=== PATIENT | female | born 1985 | race Caucasian/White ===

== ENCOUNTER 2017-01-19 18:59 | Emergency (ER) | payer MEDICAID, OTHER ==
[2017-01-19 20:42] VITALS: BP 125/81
== END 2017-01-20 03:07 | disposition left against medical advice (07) ==
LOC: ED 18:59
DX: M79.602 Pain in left arm (principal); Z53.21 Procedure and treatment not carried out due to patient leaving prior to being seen by health care provider

== ENCOUNTER 2021-10-14 21:57 | Outpatient (CLI) | payer OTHER ==
[2021-10-14 22:16] VITALS: BP 135/86
== END 2021-10-15 01:18 | disposition home or self-care (01) ==
LOC: TRG 21:57 → APU 22:04 → TRG 10-15 01:18
PROVIDERS: ATTEND Obstetrics & Gynecology
DX: O47.03 False labor before 37 completed weeks of gestation, third trimester (principal); Z3A.39 39 weeks gestation of pregnancy
CPT/HCPCS: 59025

== ENCOUNTER 2021-10-15 06:09 | Inpatient (IN) | payer OTHER ==
[2021-10-15] MEDS ORDERED: LACTATED RINGERS 1,000 ML ONE (06:27)
[2021-10-15] MEDS ORDERED: BUTORPHANOL 2 MG/1 ML INJ IV PRN (06:35)
[2021-10-15] MEDS ORDERED: NalbUPHINE 10 MG/1 ML INJ IV PRN (06:35)
[2021-10-15] MEDS ORDERED: miSOPROStol 200 MCG TAB PR PRN (06:35)
[2021-10-15] MEDS ORDERED: LOPERAMIDE 2 MG CAP PO PRN (06:35)
[2021-10-15] MEDS ORDERED: ePHEDrine SULFATE 50 MG/1 ML INJ IV PRN (06:35)
[2021-10-15] MEDS ORDERED: METHYLERGONOVINE MALEATE 0.2 MG/ML VIAL IM PRN (06:35)
[2021-10-15] MEDS ORDERED: LIDOCAINE (2%) 20 MG/1 ML VIAL 20 ML MDV INFILTRATI ONE (06:35)
[2021-10-15] MEDS ORDERED: ACETAMINOPHEN 325 MG TAB PO PRN ×2 (06:35→08:41)
[2021-10-15] MEDS ORDERED: TERBUTALINE 1 MG/1 ML INJ SUB-Q PRN (06:35)
[2021-10-15] MEDS ORDERED: CARBOPROST TROMETHAMINE 250 MCG/1 ML INJ IM PRN (06:35)
[2021-10-15] MEDS ORDERED: fentaNYL 100 MCG/2 ML INJ IV PRN (06:35)
[2021-10-15] MEDS ORDERED: OXYTOCIN 10 UNIT/1 ML INJ IM PRN (06:35)
[2021-10-15] MEDS ORDERED: MINERAL OIL 30 ML ORAL LIQD PO PRN (06:35)
[2021-10-15] MEDS ORDERED: LACTATED RINGERS 1,000 ML IV SCH (06:45)
[2021-10-15 07:00] LABS: Hematocrit 41.4 % (30.3-42.9); Hemoglobin 13.8 gm/dl (10.1-14.3); Mean Corpuscular HGB Conc 33 % (30-34); Mean Corpuscular Volume 90 fl (79-97); Platelet Count 203 K/mm3 (140-440); Red Blood Count 4.58 M/mm3 (3.65-5.03); Red Cell Distribution Width 15.7 % (13.2-15.2)
[2021-10-15] MEDS ORDERED: OXYTOCIN DRIP 30 UNITS/500 ML BAG IV SCH ×3 (07:00→09:00)
--- NOTE | 2021-10-15 08:38 | History and Physical Report ---
History of Present Illness Date of examination: 10/15/21 Date of admission: 10/15/21 06:35 Chief complaint: ctx History of present illness: at 39.3wk by LMP c/w U/S with EDC 10/19/21. care at [facility]. Pt comes to triage with c/o ctx and she was seen earlier, sent home and now she feels like the baby is coming. Pt admits to movement, d enies LOF or vag bleed or headache. records retrieved from the car after pt delivered show Blood type O positive, neg antibody screen, RPR neg, HepBsAg neg, HIV neg, 1hrgtt abnormal and 3hrgtt wnl, Rubella non-immune; GBS negative Past History Past Medical History: other (morbid obesity) Past Surgical History: no surgical history Family/Genetic History: none Social history: no significant social history - Obstetrical History Expected Date of Delivery: 10/19/21 Actual Gestation: 39 Week(s) 3 Day(s) : 5 Hx # Term Pregnancies: 4 Number of Living Children: 4 Medications and Allergies Allergies Allergy/AdvReac Type Severity Reaction Status Date / Time penicillin Allergy Rash Verified 10/15/21 07:26 Home Medications Medication Instructions Recorded Confirmed Last Taken Type No Known Home Medications [No 10/15/21 10/15/21 Unknown History Reported Home Medications] Active Meds: Active Medications Acetaminophen (Acetaminophen 325 Mg Tab) 650 mg PO Q4H PRN PRN Reason: Pain, Mild (1-3) Butorphanol Tartrate (Butorphanol 2 Mg/1 Ml Inj) 2 mg IV Q2H PRN PRN Reason: Pain , Severe (7-10) Carboprost Tromethamine (Carboprost Tromethamine 250 Mcg/1 Ml Inj) 250 mcg IM ONCE PRN PRN Reason: Uterine Bleeding Ephedrine Sulfate (Ephedrine Sulfate 50 Mg/1 Ml Inj) 10 mg IV Q2M PRN PRN Reason: Hypotension Fentanyl (Fentanyl 100 Mcg/2 Ml Inj) 100 mcg IV Q2H PRN PRN Reason: Pain,Severe (7-10) LABOR PAIN Oxytocin/Sodium Chloride (Pitocin/Ns 30 Unit/500ml) 30 units in 500 mls @ 2 mls/hr IV TITR DIMPLE; Protocol Lactated Ringer's (Lactated Ringers) 1,000 mls @ 125 mls/hr IV DIRECT DIMPLE Oxytocin/Sodium Chloride (Pitocin/Ns 30 Unit/500ml) 30 units in 500 mls @ 40 mls/hr IV TITR DIMPLE; Protocol Last Admin: 10/15/21 07:51 Dose: 999 ml/hr, 999 mls/hr Loperamide HCl (Loperamide 2 Mg Cap) 2 mg PO ONCE PRN PRN Reason: give with Hemabate Methylergonovine Maleate (Methylergonovine Maleate 0.2 Mg/Ml Vial) 0.2 mg IM ONCE PRN PRN Reason: Uterine Bleeding Mineral Oil (Mineral Oil 30 Ml Oral Liqd) 30 ml PO QHS PRN PRN Reason: Constipation Last Admin: 10/15/21 07:45 Dose: 30 ml Nalbuphine HCl (Nalbuphine 10 Mg/1 Ml Inj) 10 mg IV Q2H PRN PRN Reason: Pain, Moderate (4-6) Oxytocin (Oxytocin 10 Unit/1 Ml Inj) 10 unit IM ONCE PRN PRN Reason: Uterine Bleeding Terbutaline Sulfate (Terbutaline 1 Mg/1 Ml Inj) 0.25 mg SUB-Q ONCE PRN PRN Reason: Hyperstimulation/Hypertonicity Review of Systems All systems: negative (ctx) - Vital Signs Vital signs: Vital Signs Pulse Pulse Ox 91 H 92 10/15/21 06:53 10/15/21 06:53 Temp Pulse Resp BP Pulse Ox 82 142/56 99 10/15/21 08:19 10/15/21 08:18 10/15/21 08:19 - Physical Exam Breasts: Positive: deferred Cardiovascular: Regular rate Lungs: Positive: Normal air movement Abdomen: Positive: soft Genitourinary (Female): Positive: normal external genitalia Uterus: Positive: enlarged (non-tender, gravid) Extremities: Positive: normal - Obstetrical FHR: category 1 Uterine Contraction Monitor Mode: External Cervical Dilatation: 10 (SROM mec when I entered the room) Cervical Effacement Percentage: 100 station: +2 Uterine Contraction Pattern: Regular Uterine Contraction Intensity: Strong/Firm Results Result Diagrams: 10/15/21 06:35 Abnormal lab results 10/15/21 Range/Units 06:35 WBC 11.5 H (4.5-11.0) K/mm3 RDW 15.7 H (13.2-15.2) % All other labs normal. Assessment and Plan Term IUP in active labor and ready to deliver 1. Admit to labor and delivery 2. Plan for delivery and NICU called with meconium stained fluid 3. Obtained the records from the car post delivery Plan of care discussed with pt. Lilia PARK
[2021-10-15] MEDS ORDERED: BENZOCAINE/MENTHOL 20/0.5% TOP SPRAY 56 GM TP PRN (08:41)
[2021-10-15] MEDS ORDERED: HYDROCORTISONE 25 MG RECTAL SUPP PR PRN (08:41)
[2021-10-15] MEDS ORDERED: diphenhydrAMINE 25 MG CAP PO PRN (08:41)
[2021-10-15] MEDS ORDERED: LANOLIN/ZINC/DIMETHICONE (LANSINOH) 7 GM TP PRN (08:41)
[2021-10-15] MEDS ORDERED: MAGNESIUM HYDROXIDE (MOM) ORAL LIQD UDC PO PRN (08:41)
[2021-10-15] MEDS ORDERED: oxyCODONE /ACETAMINOPHEN 5-325MG TAB PO PRN (08:41)
[2021-10-15] MEDS ORDERED: WITCH HAZEL/ GLYCERIN PAD TP PRN (08:41)
[2021-10-15] MEDS ORDERED: PROMETHAZINE 25 MG RECT SUPP PR PRN (08:41)
[2021-10-15] MEDS ORDERED: ONDANSETRON 4 MG/2 ML INJ IV PRN (08:41)
[2021-10-15] MEDS ORDERED: PROMETHAZINE 25 MG TAB PO PRN (08:41)
--- NOTE | 2021-10-15 08:46 | Procedure Note ---
OB Delivery Note - Delivery Date of Delivery: 10/15/21 Surgeon: LIZETH BOYER Estimated blood loss: 500cc - Vaginal Delivery presentation: vertex Delivery position: OP Intrapartum events: meconium, precipitous labor- <3hr Delivery induction: none Delivery monitor: external FHT, external uterine Route of delivery: Delivery placenta: spontaneous Delivery cord: 3 umbilical vessels Episiotomy: none Delivery laceration: 1st degree (perineum) Delivery repair: chromic Anesthesia: local Delivery comments: Precipitous vag delivery of viable male infant, meconium stained fluid and NICU present. Baby with O-P presentation. Spontaneous delivery of intact placenta with 3vessel cord. Pt sustained 1st degree perineal laceration and same repaired with 2-0 chromic continuous suture and lidocaine for pain control. Bimanual done and uterine atony treated with cytotec 800mcg per rectum and IV pitocin. EBL 500cc. Mom and baby stable - Infant A at 1 minute: 8 at 5 minutes: 9 (wt 3340g; thick meconium stained fluid) Gender: Male
[2021-10-15] MEDS: IBUPROFEN 800 MG TAB PO SCH ×3 (08:56→18:29)
[2021-10-15] MEDS: PRENATAL VIT27-FE FUMARATE-FOLIC ACID VIT TAB PO SCH (12:22)
[2021-10-15 19:23] LABS: Basophils # (Auto) 0.1 K/mm3 (0.0-0.1); Eosinophils # (Auto) 0.1 K/mm3 (0.0-0.4); Eosinophils % (Auto) 0.6 % (0.0-4.3); Hematocrit 34.9 % (30.3-42.9); Hemoglobin 11.1 gm/dl (10.1-14.3); Lymphocytes % (Auto) 18.1 % (13.4-35.0); Mean Corpuscular HGB Conc 32 % (30-34); Mean Corpuscular Volume 92 fl (79-97); Monocytes # (Auto) 0.4 K/mm3 (0.0-0.8); Monocytes % (Auto) 3.8 % (0.0-7.3); Platelet Count 191 K/mm3 (140-440); Red Blood Count 3.78 M/mm3 (3.65-5.03); Red Cell Distribution Width 16.2 % (13.2-15.2)
[2021-10-15 19:38] LABS: Alanine Aminotransferase 14 units/L (7-56); Blood Urea Nitrogen 11 mg/dL (7-17); Calcium 9.5 mg/dL (8.4-10.2); Hemolysis Index 27
[2021-10-15 19:53] LABS: BUN/Creatinine Ratio 16
[2021-10-16] MEDS: IBUPROFEN 800 MG TAB PO SCH ×3 (01:47→14:56)
[2021-10-16 04:24] LABS: Hematocrit 30.6 % (30.3-42.9); Mean Corpuscular HGB Conc 33 % (30-34); Mean Corpuscular Volume 92 fl (79-97); Red Blood Count 3.34 M/mm3 (3.65-5.03); Red Cell Distribution Width 15.7 % (13.2-15.2)
[2021-10-16 04:28] LABS: Platelet Count 178 K/mm3 (140-440)
[2021-10-16] MEDS: PRENATAL VIT27-FE FUMARATE-FOLIC ACID VIT TAB PO SCH (10:00)
[2021-10-17] MEDS: IBUPROFEN 800 MG TAB PO SCH ×4 (00:53→18:20)
--- NOTE | 2021-10-17 08:03 | Progress Note ---
Assessment and Plan PPD#1 doing well 1. Routine care Subjective Date of service: 10/16/21 Principal diagnosis: PPD#1 late entry for 10/16/21 Interval history: pt had no complaints and baby in the NICU Objective - Constitutional Vitals: Vital Signs - 12hr 10/17/21 10/17/21 00:15 00:23 Temperature 97.9 F Pulse Rate 92 H Respiratory 18 Rate Blood Pressure 121/76 O2 Sat by Pulse 98 Oximetry O2 Sat by Pulse 98 Oximetry [ Bilateral] General appearance: Present: no acute distress - Respiratory Respiratory effort: normal - Cardiovascular Rhythm: regular Extremities: No edema - Gastrointestinal General gastrointestinal: Present: soft, non-tender - Genitourinary Female genitourinary: other (fundus firm 1cm below umbilicus and non-tender; lochia moderate) - Integumentary Integumentary: warm, dry - Neurologic Neurologic: moves all extremities - Psychiatric Psychiatric: cooperative - Labs CBC & Chem 7: 10/16/21 04:08 10/15/21 17:57 Medications & Allergies - Medications Allergies/Adverse Reactions: Allergies penicillin Allergy (Verified 10/15/21 07:26) Rash Home Medications: Home Medications Medication Instructions Recorded Confirmed Last Taken Type No Known Home Medications [No 10/15/21 10/15/21 Unknown History Reported Home Medications] Active Medications: Generic Name Dose Route Start Last Admin Trade Name Freq PRN Reason Stop Dose Admin Acetaminophen 650 mg 10/15/21 06:35 Acetaminophen 325 Mg Tab PO Q4H PRN Pain, Mild (1-3) Benzocaine/Menthol 1 spray 10/15/21 08:41 Benzocaine/Menthol 20/0.5% [place] 56 Gm TP PRN PRN Episiotomy Pain Bisacodyl 10 mg 10/15/21 08:41 Bisacodyl 10 Mg Rect Supp RI BID PRN Constipation Carboprost Tromethamine 250 mcg 10/15/21 06:35 Carboprost Tromethamine 250 Mcg/1 Ml Inj IM ONCE PRN Uterine Bleeding Diphenhydramine HCl 25 mg 10/15/21 08:41 Diphenhydramine 25 Mg Cap PO Q6H PRN Itching Hydrocortisone Acetate 25 mg 10/15/21 08:41 Hydrocortisone 25 Mg Rectal Supp RI BID PRN Hemorrhoids Lactated Ringer's 1,000 mls @ 125 mls/hr 10/15/21 06:45 Lactated Ringers IV DIRECT DIMPLE Oxytocin/Sodium Chloride 30 units in 500 mls @ 40 mls/hr 10/15/21 09:00 10/15/21 08:56 Pitocin/Ns 30 Unit/500ml IV 40 ml/hr TITR DIMPLE 40 mls/hr Administration Protocol Ibuprofen 800 mg 10/15/21 09:00 10/17/21 06:55 Ibuprofen 800 Mg Tab PO 800 mg Q6HR DIMPLE Administration Loperamide HCl 2 mg 10/15/21 06:35 Loperamide 2 Mg Cap PO ONCE PRN give with Hemabate Magnesium Hydroxide 30 ml 10/15/21 08:41 Magnesium Hydroxide (Mom) Oral Liqd Udc PO HS PRN Constipation Methylergonovine Maleate 0.2 mg 10/15/21 06:35 Methylergonovine Maleate 0.2 Mg/Ml Vial IM ONCE PRN Uterine Bleeding Mineral Oil 30 ml 10/15/21 06:35 10/15/21 07:45 Mineral Oil 30 Ml Oral Liqd PO 30 ml QHS PRN Administration Constipation Multi-Ingredient Ointment 1 applic 10/15/21 08:41 Lanolin/Zinc/Dimethicone (Lansinoh) 7 Gm TP PRN PRN Sore Nipples Multivitamins/Iron/Calcium 1 each 10/15/21 10:00 10/16/21 10:00 Pre06-Fk Fumarate-Folic Acid Vit Tab PO 1 each QDAY DIMPLE Administration Ondansetron HCl 4 mg 10/15/21 08:41 Ondansetron 4 Mg/2 Ml Inj IV Q8H PRN Nausea And Vomiting Oxycodone/Acetaminophen 2 tab 10/15/21 08:41 Oxycodone /Acetaminophen 5-325mg Tab PO Q6H PRN Pain, Moderate (4-6) Oxytocin 10 unit 10/15/21 06:35 Oxytocin 10 Unit/1 Ml Inj IM ONCE PRN Uterine Bleeding Promethazine HCl 25 mg 10/15/21 08:41 Promethazine 25 Mg Rect Supp RI Q6H PRN Nausea And Vomiting Promethazine HCl 25 mg 10/15/21 08:41 Promethazine 25 Mg Tab PO Q6H PRN Nausea And Vomiting Witch Maribel/Glycerin 1 each 10/15/21 08:41 Witch Maribel/ Glycerin Pad TP PRN PRN Hemorrhoid/cleansing/soothing
[2021-10-17] MEDS: PRENATAL VIT27-FE FUMARATE-FOLIC ACID VIT TAB PO SCH (11:47)
[2021-10-17 16:34] VITALS: BP 117/74
== END 2021-10-17 18:35 | disposition home or self-care (01) | DRG 807 ==
LOC: TRG 06:09 → LD 06:35 → APU 06:39 → LD 06:51 → OBSVTOIN 08:41 → OB 09:57
PROVIDERS: ADMIT Obstetrics & Gynecology; ATTEND Obstetrics & Gynecology
PROC: 10E0XZZ Delivery of Products of Conception, External Approach (ICD-10-PCS; principal; 2021-10-15)
PROC: 0HQ9XZZ Repair Perineum Skin, External Approach (ICD-10-PCS; 2021-10-15)
DX: O77.0 Labor and delivery complicated by meconium in amniotic fluid (principal); Z37.0 Single live birth; Z3A.39 39 weeks gestation of pregnancy; Z20.822 Contact with and (suspected) exposure to COVID-19; O62.3 Precipitate labor; O70.0 First degree perineal laceration during delivery; Z88.0 Allergy status to penicillin
CPT/HCPCS: 36415; 59025; 80053; 83615; 84550; 85025; 85027; 86592; 86850; 86900; 86901; 96360; G0378; J3490; J2590; U0003